=== PATIENT | male | born 1965 | race Caucasian/White ===

== ENCOUNTER → 2018-11-30 12:47 | Outpatient (CLI) | payer OTHER, MEDICAID, SELFPAY ==
--- NOTE | 2018-11-30 | DI.US.S_ITS ---
PROCEDURE: US PERIPH VENOUS LOW EXTREM BI INDICATIONS: BILATERAL LOWER EXT. SWELLING TECHNIQUE: Real-time imaging, as well as color and pulse Doppler interrogation, were performed of the deep veins of both legs from the inguinal ligament to the popliteal fossa. COMPARISON: None. FINDINGS: Right: The common femoral, femoral and popliteal veins are normally compressible, and free of intraluminal thrombus. Color and pulse Doppler demonstrate normal phasic intravascular flow. There is normal augmentation response to distal compression maneuver. Incidental note is made of a Ramirez's cyst. Left: The common femoral, femoral and popliteal veins are normally compressible, and free of intraluminal thrombus. Color and pulse Doppler demonstrate normal phasic intravascular flow. There is normal augmentation response to distal compression maneuver. IMPRESSION: 1. No evidence of deep vein thrombosis within the bilateral lower extremities. 2. Right-sided Ramirez's cyst. Dictated by: Av Kauffman M.D. on 11/30/2018 at 13:58 Approved by: Av Kauffman M.D. on 11/30/2018 at 13:59
== END ==
PROVIDERS: Visit Provider Physician Assistant Medical
DX: M79.89 Other specified soft tissue disorders (principal); M71.21 Synovial cyst of popliteal space [Baker], right knee; L53.9 Erythematous condition, unspecified; R00.0 Tachycardia, unspecified; R06.02 Shortness of breath
CPT/HCPCS: 93970

== ENCOUNTER 2019-11-05 18:57 | Emergency (ER) | payer OTHER, MEDICAID, SELFPAY ==
[2019-11-05 19:04] VITALS: BP 134/98; PULSE 118; RESP 18; TEMP 37.1; O2SAT 96; BMI 31.7
[2019-11-05 20:19] LABS: Add Manual Diff / Slide Review NO; Basophils Absolute Auto 100 /uL (0-100); Basophils Percent Auto 0.8 % (0-2); Eosinophils Absolute Auto 200 /uL (0-450); Eosinophils Percent Auto 1.3 % (2-4); Hematocrit 43.2 % (41-53); Hemoglobin 14.5 g/dL (13.5-17.5); Lymphocytes Absolute Auto 1800 /uL (1100-4500); Mean Corpuscular HGB Conc 33.6 % (30-36); Mean Corpuscular Hemoglobin 30.9 PG (26-34); Mean Corpuscular Volume 91.8 fL (80-100); Monocytes Absolute Auto 900 /uL (0-900); Monocytes Percent Auto 6.8 % (3-14); Neutrophils Absolute Auto 10700 /uL (1500-7000); Neutrophils Percent Auto 78.1 % (50-75); Platelet Count 299 X10^3/uL (150-400); Red Cell Distribution Width 15.3 % (11.6-14.8); White Blood Cell Count 13.7 X10^3/uL (4.5-11.0)
[2019-11-05 20:24] LABS: Alanine Aminotransferase 28 IU/L (<50); Albumin 3.9 g/dL (3.5-5.0); Albumin Globulin Ratio 0.9 (1.0-2.8); Alkaline Phosphatase 180 U/L (38-126); Aspartate Aminotransferase 36 IU/L (17-59); BUN Creatinine Ratio 13.8 (6-22); Bilirubin Total 0.9 mg/dL (0.2-1.3); Blood Urea Nitrogen 21 mg/dL (9-20); Calcium 9.4 mg/dL (8.4-10.2); Carbon Dioxide 29 mmol/L (22-32); Chloride 94 mmol/L (98-107); Estimated Glomerular Filt Rate 47.9 mL/min (>60); Globulin 4.3 g/dL (1.7-4.1); Glucose 109 mg/dL (70-100); HEMOLYSIS < 15 (0-50); Potassium 3.3 mmol/L (3.4-5.1); Sodium 133 mmol/L (137-145); Total Protein 8.2 g/dL (6.3-8.2)
[2019-11-05 20:25] LABS: Lactate (Lactic Acid) 1.2 mmol/L (0.7-2.1)
[2019-11-05 20:35] LABS: Troponin I < 0.012 ng/mL (0.01-0.034)
[2019-11-05 20:52] VITALS: BP 137/91; PULSE 112; RESP 27; TEMP 36.6; O2SAT 96
--- NOTE | 2019-11-05 20:57 | DI.RAD.S_ITS ---
PROCEDURE: XR FOOT LT MIN 3V INDICATIONS: toe infection, ? Osteo? TECHNIQUE: 3 views of the foot were acquired. COMPARISON: [facility], CR, XR TOE(S) LEFT, 10/11/2019, 10:52. FINDINGS: Bones: No fractures or dislocations. No suspicious bony lesions. Redemonstration of fracture plate and screw arthrodesis of the first MTP joint. Interval resection of the distal phalanx of the second toe. There is slight cortical lucency/cortical loss at the distal margin of the middle phalanx of the second toe. Second toe soft tissue swelling IMPRESSION: Presumed resection of the distal phalanx remnant of the second toe since 10/11/19. Cortical lucency involving the distal margin of the middle phalanx of the second toe suspicious for osteomyelitis. Dictated by: Jasbir Quinteros M.D. on 11/05/2019 at 21:30 Approved by: Jasbir Quinteros M.D. on 11/05/2019 at 21:33
[2019-11-05] MEDS: VANCOMYCIN 1,500 MG/300 ML FROZ.PIGGY 200 MG IV (21:29)
--- NOTE | 2019-11-05 21:32 | ED_ITS ---
HPI - Wound/Laceration General Chief Complaint: Wound/Laceration Stated Complaint: states infected left foot Time Seen by Provider: 11/05/19 20:12 Source: patient Mode of arrival: Family Vehicle Limitations: no limitations History of Present Illness HPI narrative: 54-year-old diabetic on apixaban status post partial amputation the left 2nd toe by Dr. 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 He was placed on Septra b.i.d. for infection treatment. Over the last 2 days the infection has gotten worse increasing swelling, redness that is now extending onto the dorsum of the foot. Has a fairly dense peripheral neuropathy so has not experienced increased pain, he does note that he still has sensation on the very bottom of his foot and this has been more tender. Describes no fevers or but occasional chills over the week. He notes that his blood sugars have been stable, he is having no chest pain, dyspnea, palpitations, insomnia, abdominal pain, nausea, vomiting, diarrhea.. Related Data Home Medications Medication Instructions Recorded Confirmed apixaban [Eliquis] 5 mg PO BID 11/05/19 11/05/19 cetirizine [Zyrtec] 10 mg PO DAILY 11/05/19 11/05/19 furosemide 40 mg PO QPM 11/05/19 11/05/19 furosemide 80 mg PO QAM 11/05/19 11/05/19 lisinopril 5 mg PO DAILY 11/05/19 11/05/19 metformin 500 mg PO BID 11/05/19 11/05/19 metoprolol succinate 50 mg PO BID 11/05/19 11/05/19 sulfamethoxazole-trimethoprim 1 tab PO BID 11/05/19 11/05/19 Allergies Allergy/AdvReac Type Severity Reaction Status Date / Time Penicillins [PENICILLINS] Allergy Mild HIVES Verified 11/05/19 19:11 cephalexin [From Keflex] Allergy Hives Verified 11/05/19 19:11 doxycycline Allergy Hives Verified 11/05/19 19:11 Review of Systems Review of Systems Narrative: Pertinent positive and negative findings as per HPI Remainder of review of systems is otherwise unremarkable for ENT: No sore throat, neck pain, ear pain CV: Chest pain, palpitations, dyspnea on exertion Respiratory: Cough, wheeze, dyspnea : Dysuria, hematuria, flank pain MS: Muscle weakness, numbness, joint swelling or warmth Neuro: Syncope, dizziness, tingling Psych: Depression, anxiety, suicidal ideation Endocrine: Fatigue, heat or cold intolerance, very dry skin Patient History Medical History (Updated 11/05/19 @ 22:27 by Mariam Wall MD) Atrial fibrillation with rapid ventricular response (Inactive) CHF, chronic (Acute) Toe osteomyelitis (Acute) Surgical History (Updated 11/05/19 @ 22:21 by Mariam Wall MD) H/O toe surgery (Acute) Social History Smoking Status: Current every day smoker Smoking Status: Current every day smoker alcohol intake frequency: 0-2 drinks per day Substance Use Type: former substance user Exam Narrative Exam Narrative: General: Healthy appearing, in no acute distress. Able to give a complete and coherent history. Well-nourished well-developed HEENT: Moist mucous membranes, normal sclera with reactive pupils, Neck: No JVD, supple Respiratory: Lungs are clear to auscultation, no wheezing no rales no rhonchi. Full and symmetrical air movement Cardiac: Regular rate and rhythm no murmurs no bruits Abdomen: Soft nontender good bowel tones, no flank pain Neurologic: Grossly neurologically intact with no obvious asymmetries or abno rmalities. Peripheral neuropathy bilateral lower extremities with decreased sensation to fine touch to the mid goss Extremities: No trauma, well perfused. Left 2nd toe with stitches still in place, significantly erythematous, swollen with the necrotic tissue to the base of the toe. There is erythema over the dorsum of the foot and warmth/redness extending from the toe to approximately 6 in proximal to the ankle Psych: Cooperative, appropriate insight and affect Initial Vital Signs Initial Vital Signs: Vital Signs Temperature 98.7 F 11/05/19 19:04 Pulse Rate 118 H 11/05/19 19:04 Respiratory Rate 18 11/05/19 19:04 Blood Pressure 134/98 H 11/05/19 19:04 Pulse Oximetry 96 11/05/19 19:04 Course Orders Ordered: ED Orders 11/05/19 19:55 Complete Blood Count AUTO DIFF Stat Comprehensive Metabolic Panel Stat Lactate (Lactic Acid) Stat Troponin I Stat 11/05/19 20:24 Blood Culture Stat 11/05/19 20:57 XR foot LT min 3V Stat Discontinued Medications Vancomycin HCl/Dextrose (Vancomycin) 1,500 mg in 300 mls @ 200 mls/hr IV NOW ONE Stop: 11/05/19 22:23 Last Infusion: 11/05/19 23:10 Dose: 0 mls/hr Documented by: Admin: 11/05/19 21:29 Dose: 200 mls/hr Documented by: MARANDA Metronidazole (Flagyl) 500 mg in 100 mls @ 100 mls/hr IV NOW ONE Stop: 11/05/19 21:54 Last Admin: 11/05/19 23:00 Dose: 100 mls/hr Documented by: NATANAELFAREliana Levofloxacin (Levaquin) 750 mg in 150 mls @ 100 mls/hr IV NOW ONE Stop: 11/05/19 22:24 Last Infusion: 11/05/19 23:10 Dose: 0 mls/hr Documented by: Admin: 11/05/19 21:34 Dose: 100 mls/hr Documented by: MARANDA Vital Signs Vital signs: Vital Signs - 8 hr 11/05/19 19:04 11/05/19 20:52 11/05/19 21:53 Temperature 98.7 F 97.8 F Pulse Rate 118 H 112 H 95 H Respiratory Rate 18 27 H 17 Blood Pressure 134/98 H Blood Pressure [Right Arm] 137/91 H 123/71 Pulse Oximetry 96 96 97 MDM - Wound/Laceration Medical Records Attestation: I reviewed the patient's medical records. Lab Data Attestation: I reviewed the patient's lab results. Result diagrams: 11/05/19 19:55 11/05/19 19:55 Labs: Lab Results 11/05/19 11/05/19 11/05/19 Range/Units 19:55 19:55 19:55 WBC 13.7 H (4.5-11.0) X10^3/uL RBC 4.70 (4.5-5.9) X10^6/uL Hgb 14.5 (13.5-17.5) g/dL Hct 43.2 (41-53) % MCV 91.8 (80-100) fL MCH 30.9 (26-34) PG MCHC 33.6 (30-36) % RDW 15.3 H (11.6-14.8) % Plt Count 299 (150-400) X10^3/uL Neut % (Auto) 78.1 H (50-75) % Lymph % (Auto) 13.0 L (25-40) % [place] % (Auto) 6.8 (3-14) % Eos % (Auto) 1.3 L (2-4) % Baso % (Auto) 0.8 (0-2) % Neut # (Auto) 86040 H (7880-3459) /uL Lymph # (Auto) 1800 (3139-9795) /uL [place] # (Auto) 900 (0-900) /uL Eos # (Auto) 200 (0-450) /uL Baso # (Auto) 100 (0-100) /uL Sodium 133 L (137-145) mmol/L Potassium 3.3 L (3.4-5.1) mmol/L Chloride 94 L (98-107) mmol/L Carbon Dioxide 29 (22-32) mmol/L BUN 21 H (9-20) mg/dL Creatinine 1.52 H (0.66-1.25) mg/dL Estimated GFR 47.9 L (>60) mL/min BUN/Creatinine Ratio 13.8 (6-22) Glucose 109 H (70-100) mg/dL Lactate 1.2 (0.7-2.1) mmol/L Calcium 9.4 (8.4-10.2) mg/dL Total Bilirubin 0.9 (0.2-1.3) mg/dL AST 36 (17-59) IU/L ALT 28 (<50) IU/L Alkaline Phosphatase 180 H (38-126) U/L Troponin I < 0.012 (0.01-0.034) ng/mL Total Protein 8.2 (6.3-8.2) g/dL Albumin 3.9 (3.5-5.0) g/dL Globulin 4.3 H (1.7-4.1) g/dL Albumin/Globulin Ratio 0.9 L (1.0-2.8) Imaging Data Foot x-ray: Radiologist's Impression: IMPRESSION: Presumed resection of the distal phalanx remnant of the second toe since 10/11/19. Cortical lucency involving the distal margin of the middle phalanx of the second toe suspicious for osteomyelitis. Dictated by: Jasbir Quinteros M.D. on 11/05/2019 at 21:30 MDM Narrative Medical decision making narrative: 54-year-old gentleman with probable os teomyelitis of the left 2nd toe complicated by surgery on October 24, Febra antibiotic since October 31 and continuing to get worse. He has diabetes, peripheral neuropathy and chronic lower extremity edema. He showing no signs of sepsis at this time. He has a penicillin allergy so he started on vancomycin Levaquin and Flagyl for antibiotic coverage. Spoke with the original surgeon, Dr. Benson, who will happily consult on him again after he has been admitted to [facility]. He will be admitted to the hospitalist service. Dr Davila accepts admit. Likely will need additional surgical revision of the infected toe. Stable for transfer at this time Discharge Plan Departure Patient Disposition: [facility] Clinical Impression: Osteomyelitis Qualifiers: Osteomyelitis type: other acute Osteomyelitis location: foot Laterality: left Qualified Code(s): M86.172 - Other acute osteomyelitis, left ankle and foot Diabetes Qualifiers: Diabetes mellitus type: type 2 Diabetes mellitus intermediate school teacher insulin use: without halfway use Diabetes mellitus complication status: with other specified complication Qualified Code(s): E11.69 - Type 2 diabetes mellitus with other specified complication Cellulitis Qualifiers: Site of cellulitis: extremity Site of cellulitis of extremity: toe Laterality: left Qualified Code(s): L03.032 - Cellulitis of left toe Congestive heart failure Qualifiers: Heart failure type: unspecified Heart failure chronicity: chronic Qualified Code(s): I50.9 - Heart failure, unspecified Prescriptions: No Action furosemide 40 mg tablet 40 mg PO QPM RF: 0 metformin 500 mg tablet 500 mg PO BID RF: 0 metoprolol succinate 50 mg tablet extended release 24 hr 50 mg PO BID RF: 0 sulfamethoxazole-trimethoprim 800-160 mg tablet 1 tab PO BID RF: 0 lisinopril 10 mg tablet 5 mg PO DAILY RF: 0 Eliquis 5 mg tablet 5 mg PO BID RF: 0 furosemide 40 MG tablet 80 mg PO QAM RF: 0 cetirizine [Zyrtec] 10 mg Tablet 10 mg PO DAILY RF: 0
[2019-11-05] MEDS: levoFLOXacin 750 MG/150 ML PIGGYBACK 100 MG IV (21:34)
[2019-11-05 21:53] VITALS: BP 123/71; PULSE 95; RESP 17; O2SAT 97
--- NOTE | 2019-11-05 21:58 | PC.NURSE ---
Per provider, holding flagyl until vanco and levsadie are in.
[2019-11-05] MEDS: metroNIDAZOLE 500 MG/100 ML PIGGYBACK 100 MG IV (23:00)
[2019-11-05 23:31] VITALS: BP 112/69; PULSE 98; RESP 25; TEMP 36.9; O2SAT 98
== END 2019-11-05 23:43 | disposition short-term general hospital (02) ==
PROVIDERS: Emergency Provider Emergency Medicine
DX: L03.032 Cellulitis of left toe (principal); M86.172 Other acute osteomyelitis, left ankle and foot; E11.40 Type 2 diabetes mellitus with diabetic neuropathy, unspecified; I50.9 Heart failure, unspecified
CPT/HCPCS: 36415; 73630; 80053; 83605; 84484; 85025; 87040; 96365; 96366; 96367; 96368; 99284; J1956

== ENCOUNTER → 2019-12-06 15:57 | Outpatient (ROUT) | payer OTHER, MEDICAID, SELFPAY ==
[2019-12-06 16:13] LABS: Add Manual Diff / Slide Review NO; Basophils Absolute Auto 100 /uL (0-100); Basophils Percent Auto 0.6 % (0-2); Eosinophils Absolute Auto 500 /uL (0-450); Eosinophils Percent Auto 5.6 % (2-4); Hematocrit 44.9 % (41-53); Hemoglobin 14.8 g/dL (13.5-17.5); Lymphocytes Absolute Auto 2900 /uL (1100-4500); Mean Corpuscular HGB Conc 32.8 % (30-36); Mean Corpuscular Hemoglobin 30.4 PG (26-34); Mean Corpuscular Volume 92.5 fL (80-100); Monocytes Absolute Auto 700 /uL (0-900); Monocytes Percent Auto 7.3 % (3-14); Neutrophils Absolute Auto 4900 /uL (1500-7000); Neutrophils Percent Auto 54.5 % (50-75); Platelet Count 249 X10^3/uL (150-400); Red Blood Cell Count 4.85 X10^6/uL (4.5-5.9); Red Cell Distribution Width 15.8 % (11.6-14.8)
[2019-12-06 16:24] LABS: Alanine Aminotransferase 17 IU/L (<50); Alkaline Phosphatase 102 U/L (38-126); Aspartate Aminotransferase 34 IU/L (17-59); BUN Creatinine Ratio 19.4 (6-22); Bilirubin Total 0.7 mg/dL (0.2-1.3); Blood Urea Nitrogen 20 mg/dL (9-20); C-Reactive Protein Quant 2.6 mg/dL (<1.0); Calcium 9.7 mg/dL (8.4-10.2); Carbon Dioxide 33 mmol/L (22-32); Chloride 100 mmol/L (98-107); Creatine Kinase 65 U/L (55-170); Estimated Glomerular Filt Rate > 60.0 mL/min (>60); Globulin 4.1 g/dL (1.7-4.1); Glucose 98 mg/dL (70-100); HEMOLYSIS 37 (0-50); Potassium 4.8 mmol/L (3.4-5.1); Sodium 139 mmol/L (137-145); Total Protein 8.1 g/dL (6.3-8.2)
== END ==
PROVIDERS: Visit Provider Internal Medicine Infectious Disease
DX: M86.272 Subacute osteomyelitis, left ankle and foot (principal); M86.9 Osteomyelitis, unspecified
CPT/HCPCS: 80053; 82550; 85025; 86140

== ENCOUNTER 2020-04-12 22:36 | Emergency (ER) | payer OTHER, MEDICAID, SELFPAY ==
--- NOTE | 2020-04-12 22:53 | ED_ITS ---
HPI - General Adult General Chief complaint: Arrhythmia/Palpitations Stated complaint: Lightheaded, dizzy Time Seen by Provider: 04/12/20 22:36 Source: patient and EMS Mode of arrival: EMS Limitations: no limitations History of Present Illness HPI narrative: Patient is a 55-year-old male with history of persistent AFib. Is on metoprolol but states he has not taken this medication for the past couple days because he ran out. He is also on Eliquis but states he cannot guarantee that he is taking Eliquis every day for the past month. Has been taking the rest of his medicines. Also has a history of CHF. Is on Lasix for this. Here for evaluation of an episode that occurred earlier this evening. He states that he was in his normal state health when he got up off the couch from walked into the kitchen when he came back inside on the count she felt like his heart was beating very fast. He did have some chest discomfort and shortness of breath at the time. Also some lightheadedness. He is unsure as to how long the symptoms lasted for a by the time EMS arrived and by the time he arrived here in the e mergency department he was symptom-free. He states that he is in atrial fibrillation all the time. 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 States he has had an ablation in the past. Related Data Home Medications Medication Instructions Recorded Confirmed apixaban [Eliquis] 5 mg PO BID 11/05/19 11/05/19 cetirizine [Zyrtec] 10 mg PO DAILY 11/05/19 11/05/19 furosemide 40 mg PO QPM 11/05/19 11/05/19 furosemide 80 mg PO QAM 11/05/19 11/05/19 lisinopril 5 mg PO DAILY 11/05/19 11/05/19 metformin 500 mg PO BID 11/05/19 11/05/19 metoprolol succinate 50 mg PO BID 11/05/19 11/05/19 sulfamethoxazole-trimethoprim 1 tab PO BID 11/05/19 11/05/19 Previous Rx's Medication Instructions Recorded metoprolol succinate 50 mg PO BID #60 each 04/13/20 Allergies Allergy/AdvReac Type Severity Reaction Status Date / Time Penicillins [PENICILLINS] Allergy Mild HIVES Verified 11/05/19 19:11 cephalexin [From Keflex] Allergy Hives Verified 11/05/19 19:11 doxycycline Allergy Hives Verified 11/05/19 19:11 Review of Systems Constitutional Constitutional: Denies fever(s) and Denies headache(s) ENT Ears, Nose, Mouth, and Throat: Denies headache(s) Cardiovascular Cardiovascular: Reports chest pain (At the time his heart was beating fast but not now), Reports rapid heart rate (No symptoms currently), Reports lightheadedness (At the time his heart was beating fast but no symptoms now) and Reports dyspnea (At the time his heart was beating fast been no symptoms now) Respiratory Respiratory: Reports dyspnea (At the time his heart was beating fast been no symptoms now) Gastrointestinal Gastrointestinal: Denies abdominal pain, Denies nausea and Denies vomiting Genitourinary Genitourinary: Denies dysuria Genitourinary: Denies dysuria Musculoskeletal Musculoskeletal: Denies arthralgias and Denies myalgias Integumentary/Breasts Skin/Breast: Denies rash Neurologic Neurologic: Denies behavioral changes and Denies headache(s) Psychiatric Psychiatric: Denies behavioral changes Hematologic/Lymphatic Hematologic/Lymphatic: Denies easy bleeding and Denies easy bruising Allergic/Immunologic Allergic/Immunologic: Denies urticaria Patient History Medical History Atrial fibrillation with rapid ventricular response (Inactive) CHF, chronic (Acute) Toe osteomyelitis (Acute) Surgical History (Updated 11/05/19 @ 22:21 by Mariam Wall MD) H/O toe surgery (Acute) Social History Smoking Status: Current every day smoker Smoking Status: Current every day smoker alcohol intake frequency: 0-2 drinks per day Substance Use Type: former substance user Exam Initial Vital Signs Initial Vital Signs: Vital Signs Temperature 96.8 F L 04/12/20 23:02 Pulse Rate 156 H 04/12/20 23:02 Respiratory Rate 18 04/12/20 23:02 Blood Pressure 141/90 H 04/12/20 23:02 Pulse Oximetry 98 04/12/20 23:02 Const General: cooperative, comfortable, well developed and well groomed Limitations: mental status not altered [facility] Head: normal to inspection and normocephalic Resp Effort & Inspection: normal respiratory effort Auscultation: clear to auscultation bilaterally Cardio Rate: tachycardic Rhythm: abnormal rhythm Pulses: radial pulses present GI Inspection: non-distended Skin Lesions: no lesions Rashes: no rashes Neuro General: patient alert, patient awake and patient oriented x3 Cognition: normal cognition Speech: speech normal Sensory Exam: no sensory deficits noted Extrem General: normal to inspection, capillary refill normal and No edema Psych Appearance: grossly normal and well kempt Scores GCS Elinor coma scale eye opening: Spontaneous [place] coma scale verbal response: Orientated [place] coma scale motor response: Obey commands [place] coma scale total score: 15 Course Orders Ordered: ED Orders 04/12/20 22:37 EKG-12 Lead Stat 04/12/20 22:56 Complete Blood Count AUTO DIFF Stat Comprehensive Metabolic Panel Stat Lipase Stat NT-proBNP (BNP-Adult 18+) Stat Partial Thromboplastin Time Stat Prothrombin Time INR Stat Troponin & CK Cardiac Panel Stat 04/12/20 23:35 EKG-12 Lead Stat Discontinued Medications Metoprolol Succinate (Toprol Xl) 50 mg PO NOW ONE Stop: 04/12/20 23:28 Last Admin: 04/12/20 23:45 Dose: 50 mg Documented by: MARIA DEL ROSARIO Metoprolol Tartrate (Lopressor) 5 mg IV NOW ONE Stop: 04/12/20 22:54 Last Admin: 04/12/20 23:02 Dose: 5 mg Documented by: ROSA Vital Signs Vital signs: Vital Signs - 8 hr 04/12/20 23:02 04/12/20 23:14 04/12/20 23:27 Temperature 96.8 F L Pulse Rate 156 H 104 H 108 H Respiratory Rate 18 16 17 Blood Pressure 141/90 H 124/67 Pulse Oximetry 98 98 100 04/12/20 23:30 04/12/20 23:45 04/13/20 00:00 Temperature Pulse Rate 105 H 105 H 99 H Respiratory Rate 17 14 Blood Pressure 115/80 115/80 119/78 Pulse Oximetry 100 100 04/13/20 00:30 Temperature Pulse Rate 102 H Respiratory Rate 8 L Blood Pressure 134/89 Pulse Oximetry 100 Medical Decision Making Lab Data Lab results reviewed: Yes I reviewed the patient's lab results. Result diagrams: 04/12/20 22:56 04/12/20 22:56 Labs: Lab Results 04/12/20 04/12/20 04/12/20 Range/Units 22:56 22:56 22:56 WBC 8.6 (4.5-11.0) X10^3/uL RBC 5.99 H (4.5-5.9) X10^6/uL Hgb 18.1 H (13.5-17.5) g/dL Hct 54.8 H (41-53) % MCV 91.5 (80-100) fL MCH 30.3 (26-34) PG MCHC 33.1 (30-36) % RDW 15.8 H (11.6-14.8) % Plt Count 199 (150-400) X10^3/uL Neut % (Auto) Not Reportable Lymph % (Auto) Not Reportable Russell % (Auto) Not Reportable Eos % (Auto) Not Reportable Baso % (Auto) Not Reportable Lymph # (Auto) Not Reportable Russell # (Auto) Not Reportable Baso # (Auto) Not Reportable Total Counted 100 Seg Neutrophils % 56.0 (38-70) % Band Neutrophils % Cancelled Lymphocytes % (Manual) 12.0 L (25-45) % Atypical Lymphs % 17.0 H ( - 0) % Monocytes % (Manual) 11.0 (2-11) % Eosinophils % (Manual) 3.0 (2-4) % Basophils % (Manual) 1.0 (0-1) % Metamyelocytes % Cancelled Myelocytes % Cancelled Promyelocytes % Cancelled Blast Cells % Cancelled Neutrophils # (Manual) [id number] ([id number]) /uL Nucleated RBCs Cancelled Differential Comment Cancelled Hypersegmented Neuts Cancelled Hypogranular Neuts Cancelled Reactive Lymphocytes Cancelled Plasma Cells Cancelled Smudge Cells Cancelled Other Cell Type Cancelled Toxic Granulation Cancelled Toxic Vacuolation Cancelled Dohle Bodies Cancelled Adams Rods Cancelled WBC Morphology Comment Cancelled Platelet Estimate Cancelled Clumped Platelets Cancelled Plt Morphology Comment Cancelled RBC Morphology See below Dimorphic RBCs Cancelled Polychromasia Cancelled Hypochromasia Cancelled Poikilocytosis Cancelled Basophilic Stippling Cancelled Anisocytosis 1+ H Microcytosis Cancelled Macrocytosis Cancelled Spherocytes Cancelled Pappenheimer Bodies Cancelled Sickle Cells Cancelled Target Cells Cancelled Tear Drop Cells Cancelled Ovalocytes Cancelled Stomatocytes Cancelled Helmet Cells Cancelled Donovan-Alfred Bodies Cancelled Ball[place] Rings Cancelled Alvarado Cells Cancelled Acanthocytes (Spur) Cancelled Rouleaux Cancelled Schistocytes Cancelled PT 14.7 H (10.1-12.7) SECONDS INR 1.3 (0.9-1.3) APTT 38 H (26.4-36.2) SECONDS Sodium (137-145) mmol/L Potassium (3.4-5.1) mmol/L Chloride (98-107) mmol/L Carbon Dioxide (22-32) mmol/L BUN (9-20) mg/dL Creatinine (0.66-1.25) mg/dL Estimated GFR (>60) mL/min BUN/Creatinine Ratio (6-22) Glucose (70-100) mg/dL Calcium (8.4-10.2) mg/dL Total Bilirubin (0.2-1.3) mg/dL AST (17-59) IU/L ALT (<50) IU/L Alkaline Phosphatase (38-126) U/L Total Creatine Kinase 102 (55-170) U/L CK-MB (CK-2) 3.00 H (<2.37) ng/mL CK-MB (CK-2) Rel Index 2.9 (1.5-5.0) % Troponin I 0.170 H* (0.01-0.034) ng/mL NT-Pro-B Natriuret Pep 108 (<125) pg/mL Total Protein (6.3-8.2) g/dL Albumin (3.5-5.0) g/dL Globulin (1.7-4.1) g/dL Albumin/Globulin Ratio (1.0-2.8) Lipase (23-300) U/L 04/12/20 Range/Units 22:56 WBC (4.5-11.0) X10^3/uL RBC (4.5-5.9) X10^6/uL Hgb (13.5-17.5) g/dL Hct (41-53) % MCV (80-100) fL MCH (26-34) PG MCHC (30-36) % RDW (11.6-14.8) % Plt Count (150-400) X10^3/uL Neut % (Auto) Lymph % (Auto) Russell % (Auto) Eos % (Auto) Baso % (Auto) Lymph # (Auto) Russell # (Auto) Baso # (Auto) Total Counted Seg Neutrophils % (38-70) % Band Neutrophils % Lymphocytes % (Manual) (25-45) % Atypical Lymphs % ( - 0) % Monocytes % (Manual) (2-11) % Eosinophils % (Manual) (2-4) % Basophils % (Manual) (0-1) % Metamyelocytes % Myelocytes % Promyelocytes % Blast Cells % Neutrophils # (Manual) ([id number]) /uL Nucleated RBCs Differential Comment Hypersegmented Neuts Hypogranular Neuts Reactive Lymphocytes Plasma Cells Smudge Cells Other Cell Type Toxic Granulation Toxic Vacuolation Dohle Bodies Adams Rods WBC Morphology Comment Platelet Estimate Clumped Platelets Plt Morphology Comment RBC Morphology Dimorphic RBCs Polychromasia Hypochromasia Poikilocytosis Basophilic Stippling Anisocytosis Microcytosis Macrocytosis Spherocytes Pappenheimer Bodies Sickle Cells Target Cells Tear Drop Cells Ovalocytes Stomatocytes Helmet Cells Donovan-Alfred Bodies [place] Rings Alvarado Cells Acanthocytes (Spur) Rouleaux Schistocytes PT (10.1-12.7) SECONDS INR (0.9-1.3) APTT (26.4-36.2) SECONDS Sodium 138 (137-145) mmol/L Potassium 4.1 (3.4-5.1) mmol/L Chloride 100 (98-107) mmol/L Carbon Dioxide 27 (22-32) mmol/L BUN 27 H (9-20) mg/dL Creatinine 1.50 H (0.66-1.25) mg/dL Estimated GFR 48.4 L (>60) mL/min BUN/Creatinine Ratio 18.0 (6-22) Glucose 120 H (70-100) mg/dL Calcium 9.3 (8.4-10.2) mg/dL Total Bilirubin 0.7 (0.2-1.3) mg/dL AST 52 (17-59) IU/L ALT 31 (<50) IU/L Alkaline Phosphatase 111 (38-126) U/L Total Creatine Kinase (55-170) U/L CK-MB (CK-2) (<2.37) ng/mL CK-MB (CK-2) Rel Index (1.5-5.0) % Troponin I (0.01-0.034) ng/mL NT-Pro-B Natriuret Pep (<125) pg/mL Total Protein 9.0 H (6.3-8.2) g/dL Albumin 4.5 (3.5-5.0) g/dL Globulin 4.5 H (1.7-4.1) g/dL Albumin/Globulin Ratio 1.0 (1.0-2.8) Lipase 107 (23-300) U/L ECG Data Attestation: I personally reviewed and interpreted this ECG as follows: Prior ECG tracings: not available for review Interpretation: Atrial fibrillation Ventricular rate of 122 Left axis deviation LVH Nonspecific ST T wave changes Repeat EKG AFib Ventricular rate of 100 Left axis deviation Left bundle-branch block MDM Narrative Medical decision making narrative: Patient arrived AFib with RVR. States that he has not taken his metoprolol in the past couple days because he ran out of this prescription. He also cannot state that he is taking his Eliquis on a daily basis for the past month. He does state that he is in atrial fibrillation all the time. Patient not a candidate for cardioversion. Was given metoprolol IV which improved his heart rate and then he was given his normal dose of oral metoprolol. Does have some changes on his initial EKG when his heart rate was fast that could be consistent with ischemia with a seem to improve on repeat EKG. Patient does have a positive troponin. Discussed the case with Cardiology who recommended admitting to the hospital and trending the troponin and obtaining an echocardiogram and stress test in the morning. Discussed this with the patient however he states he feels fine and does not want to be admitted to the hospital. We had a long discussion that his troponin was elevated in this could potentially mean that he is having ischemic changes to his heart which could potentially lead to worsening of his other symptoms to include his CHF for potentially . We did discuss that we should start him on anticoagulation admitted to the hospital for further workup. The patient expressed understanding of all this but declined to be admitted stating that he could not get a hold of his which was concerning to him and he wanted to go check to make sure that his was okay. Patient was alert oriented x3. GCS of 15. Was not clinically intoxicated. My pain capacity to make decisions and he did express understanding of the risks and benefits of being admitted to the hospital to include risks of potential worsening of his condition even being discharged and the potential of avoiding these complications by be amended to the hospital. He again expressed understanding of this and stated he did not want to be admitted. He signed the against medical advice paperwork. I did electronically transmitted a refill of his metoprolol to the pharmacy of his choice. He confirmed that it was the metoprolol succinate extended release he was taking 50 mg 2 times a day. Patient was informed that he could return to the emergency department at any point for further workup and admission to the hospital. He expressed understanding and agreement. Discharge Plan Departure Patient Disposition: Left Against Medical Advice Clinical Impression: Atrial fibrillation, Non-ST elevated myocardial infarction Discharge Date/Time: 04/13/20 00:40 Instructions: Heart Attack, DI for Atrial Fibrillation Activity Restrictions/Additional Instructions: Despite our discussion of the fact that your labs are concerning that you may be having a heart attack you have decided to be discharged home to follow-up with your primary doctor tomorrow. I have refilled your metoprolol and electronically transmitted to [facility] in [place]. Please pick this up and start taking as directed is it will most likely help keep your heart rate under control. Recommend that tomorrow you contact your primary provider for follow- up. You can return to the emergency department at any point to complete your wo rkup and evaluation and I encourage you to do this. Prescriptions: New metoprolol succinate 50 mg capsule,sprinkle,ER 24hr 50 mg PO BID Qty: 60 RF: 0 No Action furosemide 40 mg tablet 40 mg PO QPM RF: 0 metformin 500 mg tablet 500 mg PO BID RF: 0 metoprolol succinate 50 mg tablet extended release 24 hr 50 mg PO BID RF: 0 sulfamethoxazole-trimethoprim 800-160 mg tablet 1 tab PO BID RF: 0 lisinopril 10 mg tablet 5 mg PO DAILY RF: 0 Eliquis 5 mg tablet 5 mg PO BID RF: 0 furosemide 40 MG tablet 80 mg PO QAM RF: 0 cetirizine [Zyrtec] 10 mg Tablet 10 mg PO DAILY RF: 0 Stand Alone Forms: Against Medical Advice
[2020-04-12 23:02] VITALS: BP 141/90; PULSE 156; RESP 18; TEMP 36; O2SAT 98; BMI 34.4
[2020-04-12] MEDS: METOPROLOL TARTRATE 5 MG/5 ML INJ IV (23:02)
[2020-04-12 23:11] LABS: Hematocrit 54.8 % (41-53); Hemoglobin 18.1 g/dL (13.5-17.5); INR 1.3 (0.9-1.3); Mean Corpuscular HGB Conc 33.1 % (30-36); Mean Corpuscular Hemoglobin 30.3 PG (26-34); Mean Corpuscular Volume 91.5 fL (80-100); Platelet Count 199 X10^3/uL (150-400); Prothrombin Time 14.7 SECONDS (10.1-12.7); Red Blood Cell Count 5.99 X10^6/uL (4.5-5.9); Red Cell Distribution Width 15.8 % (11.6-14.8); White Blood Cell Count 8.6 X10^3/uL (4.5-11.0)
[2020-04-12 23:13] LABS: Add Manual Diff / Slide Review YES
[2020-04-12 23:14] VITALS: BP 124/67; PULSE 104; RESP 16; O2SAT 98
[2020-04-12 23:14] LABS: Creatine Kinase 102 U/L (55-170); PTT Partial Thromboplastin Tim 38 SECONDS (26.4-36.2)
[2020-04-12 23:27] VITALS: PULSE 108; RESP 17; O2SAT 100
[2020-04-12 23:28] LABS: NT-proBNP (BNP-Adult 18+) 108 pg/mL (<125)
[2020-04-12 23:30] VITALS: BP 115/80; PULSE 105; RESP 17; O2SAT 100
[2020-04-12 23:30] LABS: CKMB % Relative Index 2.9 % (1.5-5.0)
[2020-04-12 23:45] VITALS: BP 115/80; PULSE 105
[2020-04-12] MEDS: METOPROLOL ER 50 MG TABLET PO (23:45)
[2020-04-12 23:51] LABS: Alanine Aminotransferase 31 IU/L (<50); Albumin 4.5 g/dL (3.5-5.0); Alkaline Phosphatase 111 U/L (38-126); Aspartate Aminotransferase 52 IU/L (17-59); Bilirubin Total 0.7 mg/dL (0.2-1.3); Blood Urea Nitrogen 27 mg/dL (9-20); Calcium 9.3 mg/dL (8.4-10.2); Carbon Dioxide 27 mmol/L (22-32); Chloride 100 mmol/L (98-107); Estimated Glomerular Filt Rate 48.4 mL/min (>60); Globulin 4.5 g/dL (1.7-4.1); Glucose 120 mg/dL (70-100); Lipase 107 U/L (23-300); Potassium 4.1 mmol/L (3.4-5.1); Sodium 138 mmol/L (137-145)
[2020-04-13] VITALS: BP 119/78; PULSE 99; RESP 14; O2SAT 100
[2020-04-13] LABS: HEMOLYSIS 54 (0-50)
[2020-04-13 00:01] LABS: Neutrophils Absolute Manual 4816 /uL (3000-5900); Total Cells Counted 100
[2020-04-13 00:02] LABS: Anisocytosis 1+
[2020-04-13 00:30] VITALS: BP 134/89; PULSE 102; RESP 8; O2SAT 100
== END 2020-04-13 00:40 | disposition left against medical advice (07) ==
PROVIDERS: Emergency Provider Emergency Medicine
DX: I21.4 Non-ST elevation (NSTEMI) myocardial infarction (principal); I48.91 Unspecified atrial fibrillation; Z79.01 Long term (current) use of anticoagulants; I50.9 Heart failure, unspecified; R07.9 Chest pain, unspecified; R06.00 Dyspnea, unspecified
CPT/HCPCS: 36415; 80053; 82550; 82553; 83690; 83880; 84484; 85025; 85610; 85730; 93005; 93010; 96374; 99284